=== PATIENT | female | born 1970 | race Caucasian/White ===

== ENCOUNTER 2016-04-05 14:30 | Emergency (ER) | payer MEDICARE, MEDICAID ==
[~2016-04-05 14:30] MED LIST: AMBI5TAB; AMBI5TAB OR; AMIT10TA2; AMIT25TA2; AMIT25TA2 OR; AMIT50TA2 OR; ATEN25TA; BACL10TA2 OR; DIOV80TA; DULO20CA OR; FLEXERIL; HYDROCODONE; INDERAL OR; LYRI75CA; LYRI75CA OR; PERC5TAB8 OR; PROP60TA OR; TIZA4TAB; TIZA4TAB OR; TOPI25TA2; TOPI25TA2 OR; TOPI50TA OR; VICO5TAB; VICODIN OR
[2016-04-05] MEDS ORDERED: KETOROLAC 30 MG/ML VIAL (J1885) As Ordered ONE (15:19)
[2016-04-05] MEDS ORDERED: ONDANSETRON 4MG/2ML VIAL (J2405) As Ordered ONE (15:19)
[2016-04-05] MEDS ORDERED: ACETAMINOPHEN 325 MG TAB As Ordered ONE (15:19)
[2016-04-05 15:32] LABS: BASO # 0.1 K/mm3 (0.0-0.2); BASO % 0.9 % (0.0-1.0); EOS # 0.2 K/mm3 (0.0-0.50); EOS % 1.4 % (0.0-3.0); LARGE UNSTAINED CELL # 0.1 K/mm3 (0.0-0.4); LARGE UNSTAINED CELL % 0.6 % (0.0-4.0); LYMPH # 1.8 K/mm3 (1.5-4.5); LYMPH % 16.3 % (24.0-44.0); MEAN CORPUSCULAR HEMOGLOBIN 27.9 pg (27.0-33.0); MEAN CORPUSCULAR HGB CONC 33.4 g/dl (32.0-36.5); MEAN CORPUSCULAR VOLUME 83.6 fl (80.0-96.0); MONO # 0.3 K/mm3 (0.0-0.8); MONO % 2.6 % (0.0-5.0); NEUTROPHILS # 8.4 K/mm3 (1.8-7.7); NEUTROPHILS % 78.2 % (36.0-66.0); PLATELET COUNT, AUTOMATED 316 k/mm3 (150-450); RED CELL DISTRIBUTION WIDTH 13.8 % (11.5-14.5); WHITE BLOOD COUNT 10.7 K/mm3 (4.0-10.0)
[2016-04-05 15:54] LABS: ALBUMIN 3.3 GM/DL (3.2-5.2); ALBUMIN/GLOBULIN RATIO 1.03 (1.00-1.93); ALKALINE PHOSPHATASE 151 U/L (45-117); ALT/SGPT 34 U/L (12-78); ANION GAP 10 MEQ/L (8-16); AST/SGOT 34 U/L (15-37); BILIRUBIN,DIRECT 0.1 MG/DL (0.0-0.2); BILIRUBIN,TOTAL 0.4 MG/DL (0.2-1.0); BLOOD UREA NITROGEN 9 MG/DL (7-18); CALCIUM LEVEL 8.6 MG/DL (8.5-10.1); CARBON DIOXIDE LEVEL 28 MEQ/L (21-32); CHLORIDE LEVEL 103 MEQ/L (98-107); CREATININE FOR GFR 0.81 MG/DL (0.55-1.02); GLOMERULAR FILTRATION RATE > 60.0 (>58); GLUCOSE, FASTING 99 MG/DL (70-105); POTASSIUM SERUM 4.1 MEQ/L (3.5-5.1); SODIUM LEVEL 141 MEQ/L (136-145); TOTAL PROTEIN 6.5 GM/DL (6.4-8.2)
--- NOTE | 2016-04-05 17:20 | REP ---
GALLBLADDER ULTRASOUND, 04/05/2016: INDICATION: Biliary colic. COMPARISON: CT abdomen and pelvis 02/02/2015. FINDINGS: The gallbladder measures 7 x 3.2 x 3.5 cm and contains a few small dependent stones with minimal posterior acoustic shadowing. The gallbladder wall 2.8 mm in thickness. There was a negative sonographic Alvarez sign. Common bile duct 3.1 mm transverse dimension, within normal limits. The hepatic parenchyma is homogeneous without focal lesion. The pancreatic head and pancreatic body are unremarkable. The tail is partially obscured by bowel gas. The right kidney measures 11.5 x 4.8 x 6.0 cm, is without hydronephrosis. There is prominent column of Edward in the midpole of right kidney. IMPRESSION: 1. Cholelithiasis with negative sonographic Alvarez sign. The gallbladder wall is 0.28 cm in thickness, upper normal range. 2. Pancreatic tail partially obscured by bowel gas. Remainder of pancreas unremarkable. 3. Liver is without focal lesions or fatty infiltration. 4. The right kidney without hydronephrosis. Prominent column of Edward. [facility]
[2016-04-05] MEDS ORDERED: NORCO, ANEXSIA 5/325MG TABLET (HYDROcodone/ACETAMINOPHEN) As Ordered ONE (18:02)
[2016-04-05] MEDS ORDERED: CIPROFLOXACIN 500 MG TAB As Ordered ONE (18:03)
[2016-04-05] MEDS ORDERED: metroNIDAZOLE (FLAGYL) 250 MG TAB As Ordered ONE (18:03)
--- NOTE | 2016-04-05 18:11 | EDDOCDS ---
Nurse's Notes [facility], [place] Name: Ginny Rocha Age: 45 yrs Sex: Female : 1970 Arrival Date: 04/05/2016 Time: 14:30 Bed I5 / M5 Private MD: James Plaza A. Diagnosis: Right upper quadrant abdominal tenderness;Other cholelithiasis without obstruction Presentation: 04/05 14:36 Presenting complaint: Patient states: Right lateral chest pain for few days. pain ck1 radiates down right arm, reports vomiting last night due to pain. Aspirin was not taken prior to arrival. Adult Sepsis Screening: The patient does not have new or worsening altered mentation. Patient's respiratory rate is less than 22. Systolic blood pressure is greater than 100. Patient has a qSOFA score of 0- Negative Sepsis Screen. Suicide/Homicide risk assessment- the patient denies having any suicidal and/or homicidal ideations and does not present with any other emotional, behavioral or mental health complaints. Status: Patient is not a social services aide or dependent. Transition of care: patient was not received from another setting of care. 14:36 Acuity: OMID Level 3 ck1 14:36 Method Of Arrival: Walkin/Carried/Asstd ck1 Triage Assessment: 14:39 General: Appears in no apparent distress, comfortable, Behavior is appropriate for age, ck1 cooperative. Pain: Location: right lateral anterior chest Pain currently is 6 out of 10 on a pain scale. HIV screening NA for this visit Offered previously. Neurological: Level of Consciousness is awake, alert, obeys commands, Oriented to person, place, time. Cardiovascular: Chest pain is described as Pain is 6 out of 10 on a pain scale. radiates to right neck episodes are continuous began 2 days ago. Respiratory: Respiratory effort is unlabored, Respiratory pattern is regular, symmetrical, Reports shortness of breath. Derm: Skin is intact, is healthy with good turgor, Skin is pink, warm & dry. 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 alprazolam 1 mg Oral tab 1 tab nightly 2. amitriptyline 50 mg Oral tab 1 tab nightly 3. amlodipine 5 mg Oral tab 1 tab once daily 4. hydrocodone-acetaminophen 5-325 mg Oral tab 1 tab as needed 5. irbesartan-hydrochlorothiazide 300-12.5 mg oral tab 1 tab once daily 6. labetalol 100 mg Oral tab 1 tab 2 times per day 7. tizanidine 4 mg oral tab 1 tab three times a day 8. topiramate 200 mg oral CSpX 1 cap once daily 9. zolpidem 10 mg Oral tab 1 tab nightly - PMHx: Anxiety; Depression; essential tremors; Hypertension; Migraine Headaches; Pseudoseizures; PTSD; - PSHx: Pins right ankle; Hysterectomy; - Social history: Smoking status: Patient states was never smoker of tobacco. No barriers to communication noted, The patient speaks fluent Divehi, Speaks appropriately for age. - Family history: Not pertinent. - : The pt / caregiver states he / she is not on anticoagulants. Home medication list is obtained from [employer] import data. - Exposure Risk Screening:: None identified. Screenin:08 Screening information is obtained from the patient. Fall risk: No risks identified. srm Assistance ADL's: requires no assistance with activities of daily living. Abuse/DV Screen: The patient / caregiver reports he/she is: not in a situation that causes fear, pain or injury. Nutritional screening: No deficits noted. Advance Directives: There is no active DNR order. home support is adequate. Assessment: 15:24 General: Appears in no apparent distress, Behavior is appropriate for age, cooperative. srm Neurological: No deficits noted. Cardiovascular: Rhythm is regular. Respiratory: Airway is patent Respiratory effort is even, unlabored, Breath sounds are clear bilaterally. GI: Abdomen is non- distended Bowel sounds present X 4 quads. Abd is soft and non tender X 4 quads. Derm: Skin temperature is warm. 16:12 Reassessment: Patient appears in no apparent distress at this time. Patient states srm feeling better. Patient states symptoms have improved. 17:25 General: Appears states pain to right anterior chest has again increased. Reports jmk increased pain with inspiration. without resp distress. provider aware.. 18:08 General: Appears in no apparent distress, Behavior is appropriate for age, cooperative. srm Neurological: No deficits noted. Respiratory: No deficits noted. GI: Reports upper abdominal pain. Vital Signs: 14:33 BP 144 / 96; Pulse 113; Resp 18 S; Temp 99.9(O); Pulse Ox 100% on R/A; Weight 95.25 kg gr2 (R); Height 5 ft. 5 in. (165.10 cm) (R); Pain 6/10; 16:11 BP 131 / 63; Pulse 91; Resp 18; Temp 98.8(O); Pulse Ox 95% on R/A; Pain 4/10; srm 18:09 BP 123 / 57 RA Sitting (auto/reg); Pulse 98; Resp 16; Temp 98.9(TE); Pulse Ox 96% on jrd R/A; Pain 3/10; 14:33 Body Mass Index 34.95 (95.25 kg, 165.10 cm) gr2 Vitals: 14:33 Log In Time: April 05, 2016 at 14:33. gr2 14:35 RN notified that patient meets Red Flag criteria. gr2 ED Course: 14:33 Patient visited by Dinah Burris. gr2 14:33 James Plaza is Private Physician. gr2 14:33 Patient moved to Waiting gr2 14:35 Patient visited by Dinah Burris. gr2 14:35 Patient moved to Pre RCE gr2 14:37 Triage Initiated ck1 14:42 Patient moved to Triage 1 ck1 14:48 Patient visited by No Mars PCA. rs6 15:08 Cayden Tarango PA-C is PHCP. cc10 15:08 Malick Hernandez MD is Attending Physician. cc10 15:08 Patient visited by Cayden Tarango PA-C. cc10 15:08 Patient visited by Cayden Tarango PA-C. cc10 15:11 Patient moved to I5 / M5 rs6 15:25 The patient / caregiver is instructed regarding the plan of care and ED course. srm Accompanied by Significant Other, Patient has correct armband on for positive identification. Placed in gown. Bed in low position. Call light in reach. Side rails up X 1. Cardiac monitoring not applicable on this patient. 15:25 Inserted saline lock: 20 gauge in left antecubital area and blood collected. srm 16:02 PHCP role handed off by Cayden Tarango PA-C mo1 16:02 Giovanni Bran PA is PHCP. mo1 16:12 Patient name changed from Ginny\S\Farhana\S\Aj\S\ to Ginny\S\J\S\Aj. EDMS 16:12 Patient visited by Kymberly Mclain RN. srm 16:13 [facility] Payment Agreement was scanned into [employer] and attached to record. zo 16:59 Urinalysis Sent. jmk 17:26 Patient visited by Pancho Hawkins RN. jmk 17:46 US Gallbladder Returned. EDMS 17:56 Bruno Edward MD is Referral Physician. mo1 18:08 Discontinued lock intact, bleeding controlled, pressure dressing applied, No srm redness/swelling at site. No procedures done that require assistance. 18:10 Patient visited by Mayito Soria PCA. d Administered Medications: 15:25 Drug: NS 0.9% 1000 ml Route: IV; Rate: bolus; Site: left antecubital; [facility] 15:25 Drug: Acetaminophen 650 mg [acetaminophen 325 mg tablet (2 tabs)] Route: PO; [facility] 16:11 Follow up: Response: Temperature is decreased srm 15:26 Drug: Ondansetron 4 mg Route: IVP; Site: left antecubital; k 15:26 Drug: ketorolac 30 mg [ketorolac 30 mg/mL (1 mL) injection solution (1 mL)] Route: IVP; [facility] Site: left antecubital; 16:11 Follow up: BP 131 / 63; Pulse 91 bpm; Resp 18 bpm; Temp 98.8 Oral; Pulse Ox 95% RA; srm Pain 4/10 Adult 18:06 Drug: HYDROcodone-acetaminophen 1 tabs [hydrocodone 5 mg-acetaminophen 325 mg tablet (1 jmk tabs)] Route: PO; 18:07 Drug: metroNIDAZOLE 500 mg Route: PO; [facility] 18:07 Drug: Ciprofloxacin 500 mg [ciprofloxacin 500 mg tablet (1 tabs)] Route: PO; [facility] Intake: 18:08 IV: 1000.00ml (NS); Total: 1000.00ml. srm Order Results: Lab Order: Basic Metabolic Profile; SPEC'M 04/05/16 15:21 Test: GLUCOSE, FASTING; Value: 99; Range: 70-105; Units: MG/DL; Status: F Test: BLOOD UREA NITROGEN; Value: 9; Range: 7-18; Units: MG/DL; Status: F Test: CREATININE FOR GFR; Value: 0.81; Range: 0.55-1.02; Units: MG/DL; Status: F Test: GLOMERULAR FILTRATION RATE; Value: > 60.0; Range: >58; Status: F Test: SODIUM LEVEL; Value: 141; Range: 136-145; Units: MEQ/L; Status: F Test: POTASSIUM SERUM; Value: 4.1; Range: 3.5-5.1; Units: MEQ/L; Status: F Test: CHLORIDE LEVEL; Value: 103; Range: 98-107; Units: MEQ/L; Status: F Test: CARBON DIOXIDE LEVEL; Value: 28; Range: 21-32; Units: MEQ/L; Status: F Test: ANION GAP; Value: 10; Range: 8-16; Units: MEQ/L; Status: F Test: CALCIUM LEVEL; Value: 8.6; Range: 8.5-10.1; Units: MG/DL; Status: F Test Note: ; Units are mL/min/1.73 m2 Chronic Kidney Disease Staging per NKF: Stage I & II GFR >=60 Normal to Mildly Decreased Stage III GFR 30-59 Moderately Decreased Stage IV GFR 15-29 Severely Decreased Stage V GFR <15 Very Little GFR Left ESRD GFR <15 on BECK TENDER Lab Order: CBC with Diff; SPEC'M 04/05/16 15:21 Test: WHITE BLOOD COUNT; Value: 10.7; Range: 4.0-10.0; Abnormal: Above high normal; Units: K/mm3; Status: F Test: RED BLOOD COUNT; Value: 4.12; Range: 4.00-5.40; Units: M/mm3; Status: F Test: HEMOGLOBIN; Value: 11.5; Range: 12.0-16.0; Abnormal: Below low normal; Units: g/dl; Status: F Test: HEMATOCRIT; Value: 34.4; Range: 36.0-47.0; Abnormal: Below low normal; Units: %; Status: F Test: MEAN CORPUSCULAR VOLUME; Value: 83.6; Range: 80.0-96.0; Units: fl; Status: F Test: MEAN CORPUSCULAR HEMOGLOBIN; Value: 27.9; Range: 27.0-33.0; Units: pg; Status: F Test: MEAN CORPUSCULAR HGB CONC; Value: 33.4; Range: 32.0-36.5; Units: g/dl; Status: F Test: RED CELL DISTRIBUTION WIDTH; Value: 13.8; Range: 11.5-14.5; Units: %; Status: F Test: PLATELET COUNT, AUTOMATED; Value: 316; Range: 150-450; Units: k/mm3; Status: F Test: NEUTROPHILS %; Value: 78.2; Range: 36.0-66.0; Abnormal: Above high normal; Units: %; Status: F Test: LYMPH %; Value: 16.3; Range: 24.0-44.0; Abnormal: Below low normal; Units: %; Status: F Test: MONO %; Value: 2.6; Range: 0.0-5.0; Units: %; Status: F Test: EOS %; Value: 1.4; Range: 0.0-3.0; Units: %; Status: F Test: BASO %; Value: 0.9; Range: 0.0-1.0; Units: %; Status: F Test: LARGE UNSTAINED CELL %; Value: 0.6; Range: 0.0-4.0; Units: %; Status: F Test: NEUTROPHILS #; Value: 8.4; Range: 1.8-7.7; Abnormal: Above high normal; Units: K/mm3; Status: F Test: LYMPH #; Value: 1.8; Range: 1.5-4.5; Units: K/mm3; Status: F Test: MONO #; Value: 0.3; Range: 0.0-0.8; Units: K/mm3; Status: F Test: EOS #; Value: 0.2; Range: 0.0-0.50; Units: K/mm3; Status: F Test: BASO #; Value: 0.1; Range: 0.0-0.2; Units: K/mm3; Status: F Test: LARGE UNSTAINED CELL #; Value: 0.1; Range: 0.0-0.4; Units: K/mm3; Status: F Lab Order: Cardiac Injury Profile; SPEC'M 04/05/16 15:21 Test: CPK CREATINE PHOSPHOKINASE; Value: 137; Range: 26-192; Units: U/L; Status: F Test: CK-MB VALUE MASS; Value: 1.0; Range: 0.0-3.6; Units: NG/ML; Status: F Test: MB/CK RELATIVE INDEX; Value: 0.72; Range: < OR =4; Status: F Test Note: ; DIAGNOSIS CRITERIA MMB ng/ml Relative Index (RI) NON-AMI < or = 5 N/A BORJA ZONE > 5 < or = 4 AMI > 5 > 4 Lab Order: Lipase; [facility] 04/05/16 Test: LIPASE; Value: 70; Range: 73-393; Abnormal: Below low normal; Units: U/L; Status: F Lab Order: Liver Profile; [facility] 04/05/16 Test: AST/SGOT; Value: 34; Range: 15-37; Units: U/L; Status: F Test: ALT/SGPT; Value: 34; Range: 12-78; Units: U/L; Status: F Test: ALKALINE PHOSPHATASE; Value: 151; Range: 45-117; Abnormal: Above high normal; Units: U/L; Status: F Test: BILIRUBIN,TOTAL; Value: 0.4; Range: 0.2-1.0; Units: MG/DL; Status: F Test: BILIRUBIN,DIRECT; Value: 0.1; Range: 0.0-0.2; Units: MG/DL; Status: F Test: TOTAL PROTEIN; Value: 6.5; Range: 6.4-8.2; Units: GM/DL; Status: F Test: ALBUMIN; Value: 3.3; Range: 3.2-5.2; Units: GM/DL; Status: F Test: ALBUMIN/GLOBULIN RATIO; Value: 1.03; Range: 1.00-1.93; Status: F Lab Order: Troponin; [facility] 04/05/16 Test: TROPONIN I; Value: < 0.02; Range: < 0.10; Units: NG/ML; Status: F Test Note: ; Troponin I Reference Interval for Cint LOCI: 99th Percentile= 0.00-0.045 ng/ml Risk Stratification: <= 0.10 ng/ml Decreased Risk for Adverse Clinical Events. 0.10-1.50 ng/ml Increased Risk for Adverse Clinical Events. Evaluation of additional criterion and/or repeat testing in 2-6 hours is suggested to rule out myocardial damage. >= 1.50 ng/ml Indicative of Myocardial Injury. Lab Order: Urinalysis; SPEC'M 04/05/16 15:21 Test: APPEARANCE, URINE; Value: CLEAR; Range: CLEAR; Status: F Test: COLOR, URINE; Value: YELLOW; Range: YELLOW; Status: F Test: PH,URINE; Value: 6.0; Range: 5.0-9.0; Units: UNITS; Status: F Test: SPECIFIC GRAVITY URINE AUTO; Value: 1.005; Range: 1.002-1.035; Status: F Test: PROTEIN, URINE AUTO; Value: NEGATIVE; Range: NEGATIVE; Units: mg/dL; Status: F Test: GLUCOSE, URINE (UA) AUTO; Value: NEGATIVE; Range: NEGATIVE; Units: mg/dL; Status: F Test: KETONE, URINE AUTO; Value: NEGATIVE; Range: NEGATIVE; Units: mg/dL; Status: F Test: UROBILINOGEN, URINE AUTO; Value: 0.2; Range: 0.0-2.0; Units: mg/dL; Status: F Test: BILIRUBIN, URINE AUTO; Value: NEGATIVE; Range: NEGATIVE; Status: F Test: NITRITE, URINE AUTO; Value: NEGATIVE; Range: NEGATIVE; Status: F Test: LEUKOCYTE ESTERASE, URINE AUTO; Value: NEGATIVE; Range: NEGATIVE; Status: F Test: BLOOD, URINE BLOOD; Value: 1+; Range: NEGATIVE; Abnormal: Above high normal; Status: F Test: WBC, URINE AUTO; Value: 2; Range: 0-3; Units: /HPF; Status: F Test: RBC, URINE AUTO; Value: 2; Range: 0-3; Units: /HPF; Status: F Test: BACTERIA, URINE AUTO; Value: NEGATIVE; Range: NEGATIVE; Status: F Test: SQUAMOUS EPITHELIAL CELL UR AU; Value: 4; Range: 0-6; Units: /HPF; Status: F Test: HYALINE CAST, URINE AUTO; Value: 0; Range: 0-1; Units: /LPF; Status: F Radiology Order: US Gallbladder Test: US Gallbladder REASON FOR EXAMINATION: Biliary Colic; GALLBLADDER ULTRASOUND, 04/05/2016:; ; INDICATION: Biliary colic.; ; COMPARISON: CT abdomen and pelvis 02/02/2015.; ; FINDINGS: The gallbladder measures 7 x 3.2 x 3.5 cm and contains a few small; dependent stones with posterior acoustic shadowing. The gallbladder wall 2.8 mm; in thickness. There was a negative sonographic Alvarez sign. Common bile duct 3.1; mm transverse dimension, within normal limits.; ; The hepatic parenchyma is homogeneous without focal lesion. The pancreatic head; and pancreatic body are unremarkable. The tail is partially obscured by bowel; gas.; ; The right kidney measures 11.5 x 4.8 x 6.0 cm, is without hydronephrosis. There; is prominent column of Edward in the midpole of right kidney.; ; IMPRESSION:; 1. Cholelithiasis without positive sonographic Alvarez sign. The gallbladder wall; is 0.28 cm in thickness, upper normal range.; 2. Pancreatic tail partially obscured by bowel gas. Remainder of pancreas; unremarkable.; 3. Liver is without focal lesions or fatty infiltration.; 4. The right kidney without hydronephrosis. Prominent column of Edward.; ; ; ; ; ; ; Unreviewed; Outcome: 17:56 Discharge ordered by Provider. mo1 18:08 Discharge Assessment: Patient awake, alert and oriented x 3. No cognitive and/or srm functional deficits noted. Patient verbalized understanding of disposition instructions. patient administered narcotics - no. The following High Risk Discharge criteria are identified: None. Discharged to home ambulatory, with significant other. Condition: good Condition: stable. Discharge instructions given to patient, Instructed on discharge instructions, follow up and referral plans. medication usage, Demonstrated understanding of instructions, medications, Pt was receptive of discharge instructions/ teaching. Prescriptions given X 4. Ultrasound Study completed. Property sent home with patient. 18:10 Patient left the ED. violetta Signatures: Dispatcher [employer] EDMS Pancho Hawkins RN RN jmk Michelson, Staci RN Michelle Naidu RN RN ck1 Shahbaz Martinez Gainslee gr2 Giovanni Bran PA PA mo1 Cayden Tarango, PA-C PA-C cc10 Mayito Soria, TYPEWRITER REPAIRER TYPEWRITER REPAIRER jrd No Mars, TYPEWRITER REPAIRER TYPEWRITER REPAIRER rs6 MTDD
--- NOTE | 2016-04-05 18:11 | EDDOCDS ---
Physician Documentation [facility] Name: Ginny Rocha Age: 45 yrs Sex: Female : 1970 Arrival Date: 04/05/2016 Time: 14:30 Bed I5 / M5 Private MD: James Plaza A. Disposition: 04/05/16 17:56 Discharged to Home/Self Care. Impression: Right upper quadrant abdominal tenderness, Other cholelithiasis without obstruction. - Condition is Stable. - Discharge Instructions: Biliary Colic, Cholelithiasis. - Prescriptions for Cipro 500 mg Oral Tablet - take 1 tablet by ORAL route every 12 hours; 14 tablet. Flagyl 500 mg Oral Tablet - take 1 tablet by ORAL route every 12 hours for 7 days; 14 tablet. Evarts 5- 325 mg Oral Tablet - take 1 tablet by ORAL route every 6 hours As needed MDD: 4 tabs; 20 tablet. ZOFRAN ODT 4 mg - dissolve 1 tablet by ORAL route 4 times per day As needed do not chew, do not swallow whole; 10 tablet. - Medication Reconciliation, Local Pharmacy Hours form. - Follow up: Bruno Edward MD; When: Call to arrange an appointment; Reason: Recheck today's complaints, Continuance of care. - Problem is new. - Symptoms are unchanged. Historical: - Allergies: IV Dye (Hives); - Home Meds: 1. alprazolam 1 mg Oral tab 1 tab nightly 2. amitriptyline 50 mg Oral tab 1 tab nightly 3. amlodipine 5 mg Oral tab 1 tab once daily 4. hydrocodone-acetaminophen 5-325 mg Oral tab 1 tab as needed 5. irbesartan-hydrochlorothiazide 300-12.5 mg oral tab 1 tab once daily 6. labetalol 100 mg Oral tab 1 tab 2 times per day 7. tizanidine 4 mg oral tab 1 tab three times a day 8. topiramate 200 mg oral CSpX 1 cap once daily 9. zolpidem 10 mg Oral tab 1 tab nightly - PMHx: Anxiety; Depression; essential tremors; Hypertension; Migraine Headaches; Pseudoseizures; PTSD; - PSHx: Pins right ankle; Hysterectomy; - Social history: Smoking status: Patient states was never smoker of tobacco. No barriers to communication noted, The patient speaks fluent Iranian, Speaks appropriately for age. - Family history: Not pertinent. - : The pt / caregiver states he / she is not on anticoagulants. Home medication list is obtained from [employer] import data. - Exposure Risk Screening:: None identified. 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 5 in. (165.10 cm) (R); Pain 6/10; 16:11 BP 131 / 63; Pulse 91; Resp 18; Temp 98.8(O); Pulse Ox 95% on R/A; Pain 4/10; srm 18:09 BP 123 / 57 RA Sitting (auto/reg); Pulse 98; Resp 16; Temp 98.9(TE); Pulse Ox 96% on jrd R/A; Pain 3/10; 14:33 Body Mass Index 34.95 (95.25 kg, 165.10 cm) gr2 MDM: 14:44 ECG WITH READING ER PHYS+CARDIAG ordered. EDMS 15:14 NS 0.9% 1000 ml IV at bolus once ordered. cc10 15:14 Ondansetron 4 mg IVP once ordered. cc10 15:14 ketorolac 30 mg IVP once ordered. cc10 15:14 IV Saline Lock ordered. cc10 15:14 Undress patient appropriately for examination ordered. cc10 15:14 Acetaminophen Tablet 650 mg PO once ordered. cc10 15:15 Basic Metabolic Profile Ordered. EDMS 15:15 CBC with Diff Ordered. EDMS 15:15 Cardiac Injury Profile Ordered. EDMS 15:15 Lipase Ordered. EDMS 15:15 Liver Profile Ordered. EDMS 15:15 Troponin Ordered. EDMS 15:15 Urinalysis Ordered. EDMS 15:16 NOTHING BY MOUTH+DIET ordered. EDMS 16:05 US Gallbladder Ordered. EDMS 16:05 Basic Metabolic Profile Reviewed. mo1 16:05 Liver Profile Reviewed. mo1 16:06 Lipase Reviewed. mo1 16:06 CBC with Diff Reviewed. mo1 16:06 Cardiac Injury Profile Reviewed. mo1 16:06 Troponin Reviewed. mo1 16:12 Financial registration complete. zo 16:13 [facility] Payment Agreement was scanned into [employer] and attached to record. zo 17:53 Urinalysis Reviewed. mo1 17:56 metroNIDAZOLE 500 mg PO once ordered. mo1 17:56 Ciprofloxacin 500 mg PO once ordered. mo1 17:56 HYDROcodone-acetaminophen 5 mg-325 mg 1 tabs PO once ordered. mo1 Administered Medications: 15:25 Drug: NS 0.9% 1000 ml Route: IV; Rate: bolus; Site: left antecubital; [facility] 15:25 Drug: Acetaminophen 650 mg [acetaminophen 325 mg tablet (2 tabs)] Route: PO; k 16:11 Follow up: Response: Temperature is decreased [facility] 15:26 Drug: Ondansetron 4 mg Route: IVP; Site: left antecubital; [facility] 15:26 Drug: ketorolac 30 mg [ketorolac 30 mg/mL (1 mL) injection solution (1 mL)] Route: IVP; [facility] Site: left antecubital; 16:11 Follow up: BP 131 / 63; Pulse 91 bpm; Resp 18 bpm; Temp 98.8 Oral; Pulse Ox 95% RA; srm Pain 4/10 Adult 18:06 Drug: HYDROcodone-acetaminophen 1 tabs [hydrocodone 5 mg-acetaminophen 325 mg tablet (1 jmk tabs)] Route: PO; 18:07 Drug: metroNIDAZOLE 500 mg Route: PO; k 18:07 Drug: Ciprofloxacin 500 mg [ciprofloxacin 500 mg tablet (1 tabs)] Route: PO; [facility] Signatures: Dispatcher [employer] Kymberly Chang RN RN [facility] DonyaMichelle Lopez RN RN ck1 Shahbaz Martinez Michael, PA PA mo1 Cayden Tarango PA-Gurdeep PA-C cc10 Mayito Soria, DRAKE TRAVELING NURSE d Pancho Hawkins RN The chart was reviewed and I authenticate all verbal orders and agree with the evaluation and treatment provided.Attachments: 16:13 [facility] Payment Agreement zo MTDD
--- NOTE | 2016-04-06 08:30 | ECGEPIP ---
Stationary ECG Study [facility] - ED Test Date: 2016-04-05 Pat Name: ROBYN ARITA Department: Room: - Gender: F Director Paid Media: nuvia : 1970 Requested By: Malick Stoner Order Number: [id number] Reading MD: Malick Hernandez Measurements Intervals [place] Rate: 106 P: 55 WV: 152 QRS: 35 QRSD: 88 T: 39 QT: 337 QTc: 449 Interpretive Statements SINUS TACHYCARDIA POSSIBLE LEFT ATRIAL ENLARGEMENT Electronically Signed On 04-06-2016 8:29:54 EST by Malick Hernandez
--- NOTE | 2016-04-07 19:11 | EDDOCDS ---
Physician Documentation [facility] Name: Ginny Rocha Age: 45 yrs Sex: Female : 1970 Arrival Date: 04/05/2016 Time: 14:30 Bed I5 / M5 Private MD: James Plaza A. Disposition: 04/05/16 17:56 Discharged to Home/Self Care. Impression: Right upper quadrant abdominal tenderness, Other cholelithiasis without obstruction. - Condition is Stable. - Discharge Instructions: Biliary Colic, Cholelithiasis. - Prescriptions for Cipro 500 mg Oral Tablet - take 1 tablet by ORAL route every 12 hours; 14 tablet. Flagyl 500 mg Oral Tablet - take 1 tablet by ORAL route every 12 hours for 7 days; 14 tablet. [place] 5- 325 mg Oral Tablet - take 1 tablet by ORAL route every 6 hours As needed MDD: 4 tabs; 20 tablet. ZOFRAN ODT 4 mg - dissolve 1 tablet by ORAL route 4 times per day As needed do not chew, do not swallow whole; 10 tablet. - Medication Reconciliation, Local Pharmacy Hours form. - Follow up: Bruno Edward MD; When: Call to arrange an appointment; Reason: Recheck today's complaints, Continuance of care. - Problem is new. - Symptoms are unchanged. Historical: - Allergies: IV Dye (Hives); - Home Meds: 1. alprazolam 1 mg Oral tab 1 tab nightly 2. amitriptyline 50 mg Oral tab 1 tab nightly 3. amlodipine 5 mg Oral tab 1 tab once daily 4. hydrocodone-acetaminophen 5-325 mg Oral tab 1 tab as needed 5. irbesartan-hydrochlorothiazide 300-12.5 mg oral tab 1 tab once daily 6. labetalol 100 mg Oral tab 1 tab 2 times per day 7. tizanidine 4 mg oral tab 1 tab three times a day 8. topiramate 200 mg oral CSpX 1 cap once daily 9. zolpidem 10 mg Oral tab 1 tab nightly - PMHx: Anxiety; Depression; essential tremors; Hypertension; Migraine Headaches; Pseudoseizures; PTSD; - PSHx: Pins right ankle; Hysterectomy; - Social history: Smoking status: Patient states was never smoker of tobacco. No barriers to communication noted, The patient speaks fluent Greenlandic, Speaks appropriately for age. - Family history: Not pertinent. - : The pt / caregiver states he / she is not on anticoagulants. Home medication list is obtained from [employer] import data. - Exposure Risk Screening:: None identified. 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 5 in. (165.10 cm) (R); Pain 6/10; 16:11 BP 131 / 63; Pulse 91; Resp 18; Temp 98.8(O); Pulse Ox 95% on R/A; Pain 4/10; srm 18:09 BP 123 / 57 RA Sitting (auto/reg); Pulse 98; Resp 16; Temp 98.9(TE); Pulse Ox 96% on jrd R/A; Pain 3/10; 14:33 Body Mass Index 34.95 (95.25 kg, 165.10 cm) gr2 MDM: 14:44 ECG WITH READING ER PHYS+CARDIAG ordered. EDMS 15:14 NS 0.9% 1000 ml IV at bolus once ordered. cc10 15:14 Ondansetron 4 mg IVP once ordered. cc10 15:14 ketorolac 30 mg IVP once ordered. cc10 15:14 IV Saline Lock ordered. cc10 15:14 Undress patient appropriately for examination ordered. cc10 15:14 Acetaminophen Tablet 650 mg PO once ordered. cc10 15:15 Basic Metabolic Profile Ordered. EDMS 15:15 CBC with Diff Ordered. EDMS 15:15 Cardiac Injury Profile Ordered. EDMS 15:15 Lipase Ordered. EDMS 15:15 Liver Profile Ordered. EDMS 15:15 Troponin Ordered. EDMS 15:15 Urinalysis Ordered. EDMS 15:16 NOTHING BY MOUTH+DIET ordered. EDMS 16:05 US Gallbladder Ordered. EDMS 16:05 Basic Metabolic Profile Reviewed. mo1 16:05 Liver Profile Reviewed. mo1 16:06 Lipase Reviewed. mo1 16:06 CBC with Diff Reviewed. mo1 16:06 Cardiac Injury Profile Reviewed. mo1 16:06 Troponin Reviewed. mo1 16:12 Financial registration complete. zo 16:13 [facility] Payment Agreement was scanned into [employer] ([email or web address]) and attached to record. zo 17:53 Urinalysis Reviewed. mo1 17:56 metroNIDAZOLE 500 mg PO once ordered. mo1 17:56 Ciprofloxacin 500 mg PO once ordered. mo1 17:56 HYDROcodone-acetaminophen 5 mg-325 mg 1 tabs PO once ordered. mo1 04/06 10:41 T-Sheet-- Draft Copy was scanned into [employer] ([email or web address]) and attached to record. gb 10:42 ECG/EKG was scanned into [employer] ([email or web address]) and attached to record. gb Administered Medications: 04/05 15:25 Drug: NS 0.9% 1000 ml Route: IV; Rate: bolus; Site: left antecubital; k 15:25 Drug: Acetaminophen 650 mg [acetaminophen 325 mg tablet (2 tabs)] Route: PO; k 16:11 Follow up: Response: Temperature is decreased [facility] 15:26 Drug: Ondansetron 4 mg Route: IVP; Site: left antecubital; [facility] 15:26 Drug: ketorolac 30 mg [ketorolac 30 mg/mL (1 mL) injection solution (1 mL)] Route: IVP; [facility] Site: left antecubital; 16:11 Follow up: BP 131 / 63; Pulse 91 bpm; Resp 18 bpm; Temp 98.8 Oral; Pulse Ox 95% RA; srm Pain 4/10 Adult 18:06 Drug: HYDROcodone-acetaminophen 1 tabs [hydrocodone 5 mg-acetaminophen 325 mg tablet (1 jmk tabs)] Route: PO; 18:07 Drug: metroNIDAZOLE 500 mg Route: PO; k 18:07 Drug: Ciprofloxacin 500 mg [ciprofloxacin 500 mg tablet (1 tabs)] Route: PO; [facility] Signatures: Dispatcher [employer] EDMS Kymberly Mclain RN RN srm Barnhardt, Cherri, Reg Reg gb Michelle Bob,RN RN ck1 Shahbaz Martinez Michael, PA PA mo1 Cayden Tarango, PA-C PA-C cc10 Mayito Soria, DRAKE FROG CATCHER d Pancho Hawkins RN The chart was reviewed and I authenticate all verbal orders and agree with the evaluation and treatment provided.Attachments: 16:13 [facility] Payment Agreement zo 04/06 10:41 T-Sheet-- Draft Copy gb 10:42 ECG/EKG gb Chart Complete MTDD
--- NOTE | 2016-04-07 19:11 | EDDOCDS ---
Physician Documentation [facility] Name: Ginny Rocha Age: 45 yrs Sex: Female : 1970 Arrival Date: 04/05/2016 Time: 14:30 Bed I5 / M5 Private MD: James Plaza A. Disposition: 04/05/16 17:56 Discharged to Home/Self Care. Impression: Right upper quadrant abdominal tenderness, Other cholelithiasis without obstruction. - Condition is Stable. - Discharge Instructions: Biliary Colic, Cholelithiasis. - Prescriptions for Cipro 500 mg Oral Tablet - take 1 tablet by ORAL route every 12 hours; 14 tablet. Flagyl 500 mg Oral Tablet - take 1 tablet by ORAL route every 12 hours for 7 days; 14 tablet. [place] 5- 325 mg Oral Tablet - take 1 tablet by ORAL route every 6 hours As needed MDD: 4 tabs; 20 tablet. ZOFRAN ODT 4 mg - dissolve 1 tablet by ORAL route 4 times per day As needed do not chew, do not swallow whole; 10 tablet. - Medication Reconciliation, Local Pharmacy Hours form. - Follow up: Bruno Edward MD; When: Call to arrange an appointment; Reason: Recheck today's complaints, Continuance of care. - Problem is new. - Symptoms are unchanged. Historical: - Allergies: IV Dye (Hives); - Home Meds: 1. alprazolam 1 mg Oral tab 1 tab nightly 2. amitriptyline 50 mg Oral tab 1 tab nightly 3. amlodipine 5 mg Oral tab 1 tab once daily 4. hydrocodone-acetaminophen 5-325 mg Oral tab 1 tab as needed 5. irbesartan-hydrochlorothiazide 300-12.5 mg oral tab 1 tab once daily 6. labetalol 100 mg Oral tab 1 tab 2 times per day 7. tizanidine 4 mg oral tab 1 tab three times a day 8. topiramate 200 mg oral CSpX 1 cap once daily 9. zolpidem 10 mg Oral tab 1 tab nightly - PMHx: Anxiety; Depression; essential tremors; Hypertension; Migraine Headaches; Pseudoseizures; PTSD; - PSHx: Pins right ankle; Hysterectomy; - Social history: Smoking status: Patient states was never smoker of tobacco. No barriers to communication noted, The patient speaks fluent [place], Speaks appropriately for age. - Family history: Not pertinent. - : The pt / caregiver states he / she is not on anticoagulants. Home medication list is obtained from [employer] import data. - Exposure Risk Screening:: None identified. 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 5 in. (165.10 cm) (R); Pain 6/10; 16:11 BP 131 / 63; Pulse 91; Resp 18; Temp 98.8(O); Pulse Ox 95% on R/A; Pain 4/10; srm 18:09 BP 123 / 57 RA Sitting (auto/reg); Pulse 98; Resp 16; Temp 98.9(TE); Pulse Ox 96% on jrd R/A; Pain 3/10; 14:33 Body Mass Index 34.95 (95.25 kg, 165.10 cm) gr2 MDM: 14:44 ECG WITH READING ER PHYS+CARDIAG ordered. EDMS 15:14 NS 0.9% 1000 ml IV at bolus once ordered. cc10 15:14 Ondansetron 4 mg IVP once ordered. cc10 15:14 ketorolac 30 mg IVP once ordered. cc10 15:14 IV Saline Lock ordered. cc10 15:14 Undress patient appropriately for examination ordered. cc10 15:14 Acetaminophen Tablet 650 mg PO once ordered. cc10 15:15 Basic Metabolic Profile Ordered. EDMS 15:15 CBC with Diff Ordered. EDMS 15:15 Cardiac Injury Profile Ordered. EDMS 15:15 Lipase Ordered. EDMS 15:15 Liver Profile Ordered. EDMS 15:15 Troponin Ordered. EDMS 15:15 Urinalysis Ordered. EDMS 15:16 NOTHING BY MOUTH+DIET ordered. EDMS 16:05 US Gallbladder Ordered. EDMS 16:05 Basic Metabolic Profile Reviewed. mo1 16:05 Liver Profile Reviewed. mo1 16:06 Lipase Reviewed. mo1 16:06 CBC with Diff Reviewed. mo1 16:06 Cardiac Injury Profile Reviewed. mo1 16:06 Troponin Reviewed. mo1 16:12 Financial registration complete. zo 16:13 [facility] Payment Agreement was scanned into [email or web address] and attached to record. zo 17:53 Urinalysis Reviewed. mo1 17:56 metroNIDAZOLE 500 mg PO once ordered. mo1 17:56 Ciprofloxacin 500 mg PO once ordered. mo1 17:56 HYDROcodone-acetaminophen 5 mg-325 mg 1 tabs PO once ordered. mo1 04/06 10:41 T-Sheet-- Draft Copy was scanned into [email or web address] and attached to record. gb 10:42 ECG/EKG was scanned into [email or web address] and attached to record. gb Administered Medications: 04/05 15:25 Drug: NS 0.9% 1000 ml Route: IV; Rate: bolus; Site: left antecubital; k 15:25 Drug: Acetaminophen 650 mg [acetaminophen 325 mg tablet (2 tabs)] Route: PO; k 16:11 Follow up: Response: Temperature is decreased [facility] 15:26 Drug: Ondansetron 4 mg Route: IVP; Site: left antecubital; [facility] 15:26 Drug: ketorolac 30 mg [ketorolac 30 mg/mL (1 mL) injection solution (1 mL)] Route: IVP; [facility] Site: left antecubital; 16:11 Follow up: BP 131 / 63; Pulse 91 bpm; Resp 18 bpm; Temp 98.8 Oral; Pulse Ox 95% RA; srm Pain 4/10 Adult 18:06 Drug: HYDROcodone-acetaminophen 1 tabs [hydrocodone 5 mg-acetaminophen 325 mg tablet (1 jmk tabs)] Route: PO; 18:07 Drug: metroNIDAZOLE 500 mg Route: PO; k 18:07 Drug: Ciprofloxacin 500 mg [ciprofloxacin 500 mg tablet (1 tabs)] Route: PO; [facility] Signatures: Dispatcher [employer] EDMS Kymberly Mclain RN RN srm Barnhardt, Cherri, Reg Reg gb Michelle Bob,RN RN ck1 Shahbaz Martinez Michael, PA PA mo1 Cayden Tarango, PA-C PA-C cc10 Mayito Soria, DRAKE STUCCO LABORER d Pancho Hawkins RN The chart was reviewed and I authenticate all verbal orders and agree with the evaluation and treatment provided.Attachments: 16:13 [facility] Payment Agreement zo 04/06 10:41 T-Sheet-- Draft Copy gb 10:42 ECG/EKG gb Chart Complete MTDD
--- NOTE | 2016-04-07 19:12 | EDDOCDS ---
Nurse's Notes [facility] Name: Robyn Rocha Age: 45 yrs Sex: Female : 1970 Arrival Date: 04/05/2016 Time: 14:30 Bed I5 / M5 Private MD: James Plaza A. Diagnosis: Right upper quadrant abdominal tenderness;Other cholelithiasis without obstruction Presentation: 04/05 14:36 Presenting complaint: Patient states: Right lateral chest pain for few days. pain ck1 radiates down right arm, reports vomiting last night due to pain. Aspirin was not taken prior to arrival. Adult Sepsis Screening: The patient does not have new or worsening altered mentation. Patient's respiratory rate is less than 22. Systolic blood pressure is greater than 100. Patient has a qSOFA score of 0- Negative Sepsis Screen. Suicide/Homicide risk assessment- the patient denies having any suicidal and/or homicidal ideations and does not present with any other emotional, behavioral or mental health complaints. Status: Patient is not a employee service officer or dependent. Transition of care: patient was not received from another setting of care. 14:36 Acuity: OMID Level 3 ck1 14:36 Method Of Arrival: Walkin/Carried/Asstd ck1 Triage Assessment: 14:39 General: Appears in no apparent distress, comfortable, Behavior is appropriate for age, ck1 cooperative. Pain: Location: right lateral anterior chest Pain currently is 6 out of 10 on a pain scale. HIV screening NA for this visit Offered previously. Neurological: Level of Consciousness is awake, alert, obeys commands, Oriented to person, place, time. Cardiovascular: Chest pain is described as Pain is 6 out of 10 on a pain scale. radiates to right neck episodes are continuous began 2 days ago. Respiratory: Respiratory effort is unlabored, Respiratory pattern is regular, symmetrical, Reports shortness of breath. Derm: Skin is intact, is healthy with good turgor, Skin is pink, warm & dry. CAR SANDER: 14:38 LMP N/A - Hysterectomy ck1 Historical: - Allergies: IV Dye (Hives); - Home Meds: 1. alprazolam 1 mg Oral tab 1 tab nightly 2. amitriptyline 50 mg Oral tab 1 tab nightly 3. amlodipine 5 mg Oral tab 1 tab once daily 4. hydrocodone-acetaminophen 5-325 mg Oral tab 1 tab as needed 5. irbesartan-hydrochlorothiazide 300-12.5 mg oral tab 1 tab once daily 6. labetalol 100 mg Oral tab 1 tab 2 times per day 7. tizanidine 4 mg oral tab 1 tab three times a day 8. topiramate 200 mg oral CSpX 1 cap once daily 9. zolpidem 10 mg Oral tab 1 tab nightly - PMHx: Anxiety; Depression; essential tremors; Hypertension; Migraine Headaches; Pseudoseizures; PTSD; - PSHx: Pins right ankle; Hysterectomy; - Social history: Smoking status: Patient states was never smoker of tobacco. No barriers to communication noted, The patient speaks fluent Divehi, Speaks appropriately for age. - Family history: Not pertinent. - : The pt / caregiver states he / she is not on anticoagulants. Home medication list is obtained from [employer] import data. - Exposure Risk Screening:: None identified. Screenin:08 Screening information is obtained from the patient. Fall risk: No risks identified. srm Assistance ADL's: requires no assistance with activities of daily living. Abuse/DV Screen: The patient / caregiver reports he/she is: not in a situation that causes fear, pain or injury. Nutritional screening: No deficits noted. Advance Directives: There is no active DNR order. home support is adequate. Assessment: 15:24 General: Appears in no apparent distress, Behavior is appropriate for age, cooperative. srm Neurological: No deficits noted. Cardiovascular: Rhythm is regular. Respiratory: Airway is patent Respiratory effort is even, unlabored, Breath sounds are clear bilaterally. GI: Abdomen is non- distended Bowel sounds present X 4 quads. Abd is soft and non tender X 4 quads. Derm: Skin temperature is warm. 16:12 Reassessment: Patient appears in no apparent distress at this time. Patient states srm feeling better. Patient states symptoms have improved. 17:25 General: Appears states pain to right anterior chest has again increased. Reports jmk increased pain with inspiration. without resp distress. provider aware.. 18:08 General: Appears in no apparent distress, Behavior is appropriate for age, cooperative. srm Neurological: No deficits noted. Respiratory: No deficits noted. GI: Reports upper abdominal pain. Vital Signs: 14:33 BP 144 / 96; Pulse 113; Resp 18 S; Temp 99.9(O); Pulse Ox 100% on R/A; Weight 95.25 kg gr2 (R); Height 5 ft. 5 in. (165.10 cm) (R); Pain 6/10; 16:11 BP 131 / 63; Pulse 91; Resp 18; Temp 98.8(O); Pulse Ox 95% on R/A; Pain 4/10; srm 18:09 BP 123 / 57 RA Sitting (auto/reg); Pulse 98; Resp 16; Temp 98.9(TE); Pulse Ox 96% on jrd R/A; Pain 3/10; 14:33 Body Mass Index 34.95 (95.25 kg, 165.10 cm) gr2 Vitals: 14:33 Log In Time: April 05, 2016 at 14:33. gr2 14:35 RN notified that patient meets Red Flag criteria. gr2 ED Course: 14:33 Patient visited by Dinah Burris. gr2 14:33 James Plaza is Private Physician. gr2 14:33 Patient moved to Waiting gr2 14:35 Patient visited by Dinah Burris. gr2 14:35 Patient moved to Pre RCE gr2 14:37 Triage Initiated ck1 14:42 Patient moved to Triage 1 ck1 14:48 Patient visited by No Mars PCA. rs6 15:08 Cayden Tarango PA-C is PHCP. cc10 15:08 Malick Hernandez MD is Attending Physician. cc10 15:08 Patient visited by Cayden Tarango PA-C. cc10 15:08 Patient visited by Cayden Tarango PA-C. cc10 15:11 Patient moved to I5 / M5 rs6 15:25 The patient / caregiver is instructed regarding the plan of care and ED course. srm Accompanied by Significant Other, Patient has correct armband on for positive identification. Placed in gown. Bed in low position. Call light in reach. Side rails up X 1. Cardiac monitoring not applicable on this patient. 15:25 Inserted saline lock: 20 gauge in left antecubital area and blood collected. srm 16:02 PHCP role handed off by Cayden Tarango PA-C mo1 16:02 Giovanni Bran PA is PHCP. mo1 16:12 Patient name changed from Robyn\S\Farhana\S\Aj\S\ to Robyn\S\J\S\Aj. EDMS 16:12 Patient visited by Kymberly Mclain RN. srm 16:13 COUNTS INCLUDE 234 BEDS AT THE [facility] Payment Agreement was scanned into Scope 5 and attached to record. zo 16:59 Urinalysis Sent. jmk 17:26 Patient visited by Pancho Hawkins RN. jmk 17:46 US Gallbladder Returned. EDMS 17:56 Bruno Edward MD is Referral Physician. mo1 18:08 Discontinued lock intact, bleeding controlled, pressure dressing applied, No srm redness/swelling at site. No procedures done that require assistance. 18:10 Patient visited by Mayito Soria PCA. jrd 04/06 09:01 EKG-ADULT Returned. EDMS 10:41 T-Sheet-- Draft Copy was scanned into Scope 5 and attached to record. gb 10:42 ECG/EKG was scanned into Scope 5 and attached to record. gb Administered Medications: 04/05 15:25 Drug: NS 0.9% 1000 ml Route: IV; Rate: bolus; Site: left antecubital; [facility] 15:25 Drug: Acetaminophen 650 mg [acetaminophen 325 mg tablet (2 tabs)] Route: PO; [facility] 16:11 Follow up: Response: Temperature is decreased [facility] 15:26 Drug: Ondansetron 4 mg Route: IVP; Site: left antecubital; [facility] 15:26 Drug: ketorolac 30 mg [ketorolac 30 mg/mL (1 mL) injection solution (1 mL)] Route: IVP; [facility] Site: left antecubital; 16:11 Follow up: BP 131 / 63; Pulse 91 bpm; Resp 18 bpm; Temp 98.8 Oral; Pulse Ox 95% RA; srm Pain 10 Adult 18:06 Drug: HYDROcodone-acetaminophen 1 tabs [hydrocodone 5 mg-acetaminophen 325 mg tablet (1 jmk tabs)] Route: PO; 18:07 Drug: metroNIDAZOLE 500 mg Route: PO; k 18:07 Drug: Ciprofloxacin 500 mg [ciprofloxacin 500 mg tablet (1 tabs)] Route: PO; [facility] Intake: 18:08 IV: 1000.00ml (NS); Total: 1000.00ml. srm Order Results: Lab Order: Basic Metabolic Profile; SPEC'M 04/05/16 15:21 Test: GLUCOSE, FASTING; Value: 99; Range: 70-105; Units: MG/DL; Status: F Test: BLOOD UREA NITROGEN; Value: 9; Range: 7-18; Units: MG/DL; Status: F Test: CREATININE FOR GFR; Value: 0.81; Range: 0.55-1.02; Units: MG/DL; Status: F Test: GLOMERULAR FILTRATION RATE; Value: > 60.0; Range: >58; Status: F Test: SODIUM LEVEL; Value: 141; Range: 136-145; Units: MEQ/L; Status: F Test: POTASSIUM SERUM; Value: 4.1; Range: 3.5-5.1; Units: MEQ/L; Status: F Test: CHLORIDE LEVEL; Value: 103; Range: 98-107; Units: MEQ/L; Status: F Test: CARBON DIOXIDE LEVEL; Value: 28; Range: 21-32; Units: MEQ/L; Status: F Test: ANION GAP; Value: 10; Range: 8-16; Units: MEQ/L; Status: F Test: CALCIUM LEVEL; Value: 8.6; Range: 8.5-10.1; Units: MG/DL; Status: F Test Note: ; Units are mL/min/1.73 m2 Chronic Kidney Disease Staging per NKF: Stage I & II GFR >=60 Normal to Mildly Decreased Stage III GFR 30-59 Moderately Decreased Stage IV GFR 15-29 Severely Decreased Stage V GFR <15 Very Little GFR Left ESRD GFR <15 on MIRROR POLISHER Lab Order: CBC with Diff; SPEC'M 04/05/16 15:21 Test: WHITE BLOOD COUNT; Value: 10.7; Range: 4.0-10.0; Abnormal: Above high normal; Units: K/mm3; Status: F Test: RED BLOOD COUNT; Value: 4.12; Range: 4.00-5.40; Units: M/mm3; Status: F Test: HEMOGLOBIN; Value: 11.5; Range: 12.0-16.0; Abnormal: Below low normal; Units: g/dl; Status: F Test: HEMATOCRIT; Value: 34.4; Range: 36.0-47.0; Abnormal: Below low normal; Units: %; Status: F Test: MEAN CORPUSCULAR VOLUME; Value: 83.6; Range: 80.0-96.0; Units: fl; Status: F Test: MEAN CORPUSCULAR HEMOGLOBIN; Value: 27.9; Range: 27.0-33.0; Units: pg; Status: F Test: MEAN CORPUSCULAR HGB CONC; Value: 33.4; Range: 32.0-36.5; Units: g/dl; Status: F Test: RED CELL DISTRIBUTION WIDTH; Value: 13.8; Range: 11.5-14.5; Units: %; Status: F Test: PLATELET COUNT, AUTOMATED; Value: 316; Range: 150-450; Units: k/mm3; Status: F Test: NEUTROPHILS %; Value: 78.2; Range: 36.0-66.0; Abnormal: Above high normal; Units: %; Status: F Test: LYMPH %; Value: 16.3; Range: 24.0-44.0; Abnormal: Below low normal; Units: %; Status: F Test: MONO %; Value: 2.6; Range: 0.0-5.0; Units: %; Status: F Test: EOS %; Value: 1.4; Range: 0.0-3.0; Units: %; Status: F Test: BASO %; Value: 0.9; Range: 0.0-1.0; Units: %; Status: F Test: LARGE UNSTAINED CELL %; Value: 0.6; Range: 0.0-4.0; Units: %; Status: F Test: NEUTROPHILS #; Value: 8.4; Range: 1.8-7.7; Abnormal: Above high normal; Units: K/mm3; Status: F Test: LYMPH #; Value: 1.8; Range: 1.5-4.5; Units: K/mm3; Status: F Test: MONO #; Value: 0.3; Range: 0.0-0.8; Units: K/mm3; Status: F Test: EOS #; Value: 0.2; Range: 0.0-0.50; Units: K/mm3; Status: F Test: BASO #; Value: 0.1; Range: 0.0-0.2; Units: K/mm3; Status: F Test: LARGE UNSTAINED CELL #; Value: 0.1; Range: 0.0-0.4; Units: K/mm3; Status: F Lab Order: Cardiac Injury Profile; [facility] 04/05/16 Test: CPK CREATINE PHOSPHOKINASE; Value: 137; Range: 26-192; Units: U/L; Status: F Test: CK-MB VALUE MASS; Value: 1.0; Range: 0.0-3.6; Units: NG/ML; Status: F Test: MB/CK RELATIVE INDEX; Value: 0.72; Range: < OR =4; Status: F Test Note: ; DIAGNOSIS CRITERIA MMB ng/ml Relative Index (RI) NON-AMI < or = 5 N/A BORJA ZONE > 5 < or = 4 AMI > 5 > 4 Lab Order: Lipase; [facility] 04/05/16 Test: LIPASE; Value: 70; Range: 73-393; Abnormal: Below low normal; Units: U/L; Status: F Lab Order: Liver Profile; [facility] 04/05/16 Test: AST/SGOT; Value: 34; Range: 15-37; Units: U/L; Status: F Test: ALT/SGPT; Value: 34; Range: 12-78; Units: U/L; Status: F Test: ALKALINE PHOSPHATASE; Value: 151; Range: 45-117; Abnormal: Above high normal; Units: U/L; Status: F Test: BILIRUBIN,TOTAL; Value: 0.4; Range: 0.2-1.0; Units: MG/DL; Status: F Test: BILIRUBIN,DIRECT; Value: 0.1; Range: 0.0-0.2; Units: MG/DL; Status: F Test: TOTAL PROTEIN; Value: 6.5; Range: 6.4-8.2; Units: GM/DL; Status: F Test: ALBUMIN; Value: 3.3; Range: 3.2-5.2; Units: GM/DL; Status: F Test: ALBUMIN/GLOBULIN RATIO; Value: 1.03; Range: 1.00-1.93; Status: F Lab Order: Troponin; [facility] 04/05/16 Test: TROPONIN I; Value: < 0.02; Range: < 0.10; Units: NG/ML; Status: F Test Note: ; Troponin I Reference Interval for Siemens e-SENS LOCI: 99th Percentile= 0.00-0.045 ng/ml Risk Stratification: <= 0.10 ng/ml Decreased Risk for Adverse Clinical Events. 0.10-1.50 ng/ml Increased Risk for Adverse Clinical Events. Evaluation of additional criterion and/or repeat testing in 2-6 hours is suggested to rule out myocardial damage. >= 1.50 ng/ml Indicative of Myocardial Injury. Lab Order: Urinalysis; SPEC'M 04/05/16 15:21 Test: APPEARANCE, URINE; Value: CLEAR; Range: CLEAR; Status: F Test: COLOR, URINE; Value: YELLOW; Range: YELLOW; Status: F Test: PH,URINE; Value: 6.0; Range: 5.0-9.0; Units: UNITS; Status: F Test: SPECIFIC GRAVITY URINE AUTO; Value: 1.005; Range: 1.002-1.035; Status: F Test: PROTEIN, URINE AUTO; Value: NEGATIVE; Range: NEGATIVE; Units: mg/dL; Status: F Test: GLUCOSE, URINE (UA) AUTO; Value: NEGATIVE; Range: NEGATIVE; Units: mg/dL; Status: F Test: KETONE, URINE AUTO; Value: NEGATIVE; Range: NEGATIVE; Units: mg/dL; Status: F Test: UROBILINOGEN, URINE AUTO; Value: 0.2; Range: 0.0-2.0; Units: mg/dL; Status: F Test: BILIRUBIN, URINE AUTO; Value: NEGATIVE; Range: NEGATIVE; Status: F Test: NITRITE, URINE AUTO; Value: NEGATIVE; Range: NEGATIVE; Status: F Test: LEUKOCYTE ESTERASE, URINE AUTO; Value: NEGATIVE; Range: NEGATIVE; Status: F Test: BLOOD, URINE BLOOD; Value: 1+; Range: NEGATIVE; Abnormal: Above high normal; Status: F Test: WBC, URINE AUTO; Value: 2; Range: 0-3; Units: /HPF; Status: F Test: RBC, URINE AUTO; Value: 2; Range: 0-3; Units: /HPF; Status: F Test: BACTERIA, URINE AUTO; Value: NEGATIVE; Range: NEGATIVE; Status: F Test: SQUAMOUS EPITHELIAL CELL UR AU; Value: 4; Range: 0-6; Units: /HPF; Status: F Test: HYALINE CAST, URINE AUTO; Value: 0; Range: 0-1; Units: /LPF; Status: F Radiology Order: EKG-ADULT Test: EKG-ADULT REASON FOR EXAMINATION: Chest Pain; Stationary ECG Study; [facility] - ED; ; Test Date: 2016-04-05; Pat Name: ROBYN ROCHA Department:; Room: -; Gender: F Transfer Table Operator Helper: nuvia; : 1970 Requested By: Malick Stoner; Order Number: [id number] Reading MD: Malick Hernandez; Measurements; Intervals [place]; Rate: 106 P: 55; MT: 152 QRS: 35; QRSD: 88 T: 39; QT: 337; QTc: 449; Interpretive Statements; SINUS TACHYCARDIA; POSSIBLE LEFT ATRIAL ENLARGEMENT; ; Electronically Signed On 04-06-2016 8:29:54 EST by Malick Hernandez; Radiology Order: US Gallbladder Test: US Gallbladder REASON FOR EXAMINATION: Biliary Colic; GALLBLADDER ULTRASOUND, 04/05/2016:; ; INDICATION: Biliary colic.; ; COMPARISON: CT abdomen and pelvis 02/02/2015.; ; FINDINGS: The gallbladder measures 7 x 3.2 x 3.5 cm and contains a few small; dependent stones with minimal posterior acoustic shadowing. The gallbladder; wall 2.8 mm; in thickness. There was a negative sonographic Alvarez sign. Common bile duct 3.1; mm transverse dimension, within normal limits.; ; The hepatic parenchyma is homogeneous without focal lesion. The pancreatic head; and pancreatic body are unremarkable. The tail is partially obscured by bowel; gas.; ; The right kidney measures 11.5 x 4.8 x 6.0 cm, is without hydronephrosis. There; is prominent column of Edward in the midpole of right kidney.; ; IMPRESSION:; 1. Cholelithiasis with negative sonographic Alvarez sign. The gallbladder wall; is 0.28 cm in thickness, upper normal range.; 2. Pancreatic tail partially obscured by bowel gas. Remainder of pancreas; unremarkable.; 3. Liver is without focal lesions or fatty infiltration.; 4. The right kidney without hydronephrosis. Prominent column of Edward.; ; ; ; ; ; ; MTDD Outcome: 17:56 Discharge ordered by Provider. mo1 18:08 Discharge Assessment: Patient awake, alert and oriented x 3. No cognitive and/or srm functional deficits noted. Patient verbalized understanding of disposition instructions. patient administered narcotics - no. The following High Risk Discharge criteria are identified: None. Discharged to home ambulatory, with significant other. Condition: good Condition: stable. Discharge instructions given to patient, Instructed on discharge instructions, follow up and referral plans. medication usage, Demonstrated understanding of instructions, medications, Pt was receptive of discharge instructions/ teaching. Prescriptions given X 4. Ultrasound Study completed. Property sent home with patient. 18:10 Patient left the ED. jrriya Signatures: Dispatcher [employer] EDMS Pancho Hawkins,RN RN Kymberly Venegas RN RN Cherri Palencia, Praful Reg Michelle LeyRN RN ck1 Shahbaz Martinez Gainslee gr2 Giovanni Bran PA PA mo1 Cayden Tarango, PA-C PA-C cc10 Mayito Soria, LINE INSTALLATION SUPERVISOR LINE INSTALLATION SUPERVISOR jrd No Mars, LINE INSTALLATION SUPERVISOR LINE INSTALLATION SUPERVISOR rs6 Chart Complete SUZIE
== END 2016-04-05 18:10 | disposition home or self-care (01) ==
LOC: M ED 14:30
DX: K80.12 Calculus of gallbladder with acute and chronic cholecystitis without obstruction (principal); R10.11 Right upper quadrant pain; I10 Essential (primary) hypertension; E78.5 Hyperlipidemia, unspecified; R51 Headache; E66.01 Morbid (severe) obesity due to excess calories; Z68.34 Body mass index [BMI] 34.0-34.9, adult; F41.9 Anxiety disorder, unspecified; F32.9 Major depressive disorder, single episode, unspecified; G25.0 Essential tremor; F43.10 Post-traumatic stress disorder, unspecified; F44.5 Conversion disorder with seizures or convulsions; Z79.899 Other long term (current) drug therapy; Z91.041 Radiographic dye allergy status
CPT/HCPCS: 36415; 76705; 80048; 80076; 81001; 82550; 82553; 83690; 84484; 85025; 93005; 96374; 96375; 99284; J1885; J2405

== ENCOUNTER → 2016-05-17 | Outpatient (REF) | payer MEDICARE ==
[~2016-05-17] MED LIST changes: +AMBI10TA PO; +AMIT25TA PO; +DULO1CAP PO; +DULO1CAP2 PO; +LABE10TAB PO; +LYRI75CA PO; +PERCOCET PO; +TIZA4CAP3 PO; +TOPA50TA7 PO
[2016-05-17 14:12] LABS: ALBUMIN 3.9 GM/DL (3.2-5.2); ALBUMIN/GLOBULIN RATIO 1.26 (1.00-1.93); ALKALINE PHOSPHATASE 155 U/L (45-117); ALT/SGPT 23 U/L (12-78); ANION GAP 8 MEQ/L (8-16); AST/SGOT 18 U/L (15-37); BILIRUBIN,TOTAL 0.5 MG/DL (0.2-1.0); BLOOD UREA NITROGEN 7 MG/DL (7-18); CALCIUM LEVEL 8.9 MG/DL (8.5-10.1); CARBON DIOXIDE LEVEL 29 MEQ/L (21-32); CHLORIDE LEVEL 104 MEQ/L (98-107); CHOLESTEROL LEVEL 185 MG/DL (<200); CREATININE FOR GFR 0.77 MG/DL (0.55-1.02); GLOMERULAR FILTRATION RATE > 60.0 (>58); GLUCOSE, FASTING 106 MG/DL (70-105); POTASSIUM SERUM 3.8 MEQ/L (3.5-5.1); SODIUM LEVEL 141 MEQ/L (136-145); TRIGLYCERIDES LEVEL 178 MG/DL (<150)
[2016-05-17 14:50] LABS: MEAN CORPUSCULAR HGB CONC 32.9 g/dl (32.0-36.5); MEAN CORPUSCULAR VOLUME 85.3 fl (80.0-96.0); RED CELL DISTRIBUTION WIDTH 13.5 % (11.5-14.5)
== END ==
LOC: M SFHCPLAZ 10:25
PROVIDERS: ATTEND Nurse Practitioner Adult Health
DX: Z00.00 Encounter for general adult medical examination without abnormal findings (principal); Z83.3 Family history of diabetes mellitus; E55.9 Vitamin D deficiency, unspecified; Z79.891 Long term (current) use of opiate analgesic; Z79.899 Other long term (current) drug therapy
CPT/HCPCS: 36415; 80053; 80061; 82306; 83036; 84443; 85027; G0463

== ENCOUNTER → 2016-06-02 | Day surgery (SDC) | payer MEDICARE ==
[~2016-06-02] VITALS: Ht 165.1 cm; Wt 111.6 kg
[~2016-06-02] MED LIST changes: +AMPICILLIN SOD/SULBACTAM SOD 3 GM in D5W MINI-BAG PLUS 100 ML IV ONE; +BUPIVACAINE HCL 0.25% 30 ML VIAL As Ordered ONE; +CONRAY-60 60% 50ML VIAL (Q9961) As Ordered ONE; +GLYCOPYRROLATE INJ 0.2 MG/ML 2 ML VIAL As Ordered ONE; +HYDROmorphone HCL 2 MG/ML 1ML VIAL (J1170) As Ordered ONE; +KETOROLAC 30 MG/ML VIAL (J1885) IV PRN; +KETOROLAC 60 MG/2 ML VIAL (J1885) As Ordered ONE; +LABETALOL 100 MG TAB PO ONE; +LABETALOL HCL 100 MG/20 ML VIAL As Ordered ONE; +LIDOCAINE 1% SDV INJ 30 ML VIAL As Ordered ONE; +LIDOCAINE 2% INJ 100 MG/5 ML SDV (FOR ANES.) As Ordered ONE; +LR 1,000 ML IV SCH; +MIDAZOLAM INJ 2 MG/2 ML VIAL (J2250) As Ordered ONE; +NEOSTIGMINE 1MG/ML 5 ML SYRINGE (J2710) As Ordered ONE; +NORCO, ANEXSIA 5/325MG TABLET (HYDROcodone/ACETAMINOPHEN) PO PRN; +ONDANSETRON 4MG/2ML VIAL (J2405) As Ordered ONE; +ONDANSETRON 4MG/2ML VIAL (J2405) IV PRN; +PROPOFOL 200 MG/20 ML VIAL As Ordered ONE; +ROCURONIUM BROMIDE 50 MG/5 ML VIAL As Ordered ONE; +dexameTHASONE 4 MG/ML 1ML VIAL (J1100) As Ordered ONE; +fentaNYL 250 MCG/5 ML INJECTION (J3010) As Ordered ONE
[2016-06-02] MEDS: LR 1,000 ML IV SCH ×2 (10:31→16:30)
[2016-06-02 14:36] VITALS: BP 170/84
[2016-06-02 19:30] VITALS: BP 167/88
--- NOTE | 2016-06-04 12:47 | RO ---
DATE OF PROCEDURE: 06/02/2016 PREOPERATIVE DIAGNOSIS: Symptomatic cholelithiasis. POSTOPERATIVE DIAGNOSIS: Symptomatic cholelithiasis. PROCEDURE: Laparoscopic cholecystectomy. SURGEON: Bruno Edward MD LEAD CARE MANAGER: ANESTHESIA: General anesthesia. ESTIMATED BLOOD LOSS: Less than 5 mL. COMPLICATIONS: None. REMARKS: Patient tolerated the procedure well. DESCRIPTION OF PROCEDURE: Ms. Rocha is a 45-year-old female who was seen in the emergency department for right-sided abdominal pain, diagnosed to have had most likely acute cholecystitis at that time. On her discharge home, she followed up with me. She had stones in the gallbladder. Her liver function tests (LFTs) were normal. She was advised cholecystectomy and agreed after a full discussion of the risks and benefits. She received preoperatively for prophylaxis. She was brought to the operating room. General endotracheal anesthesia started without any complication. Her abdomen prepped and draped in usual sterile fashion. After surgical time-out, we began our surgery. Entry of the abdomen had been done through an incision about 2 cm above the umbilicus, it was deepened to anterior fascia. Veress needle inserted in a controlled fashion. CO2 insufflation started at a pressure of 15 mmHg. Using the same incision, a 5 mm Visiport was placed under direct vision of the laparoscope. The insertion site was inspected for injury, none was found. She was placed in a traverse Trendelenburg position right side tilted up to further expose the gallbladder. Three other working ports were placed, an 11 mm epigastric port and two 5 mm right sided ports along the coastal line. Diagnostic laparoscopy, initially the gallbladder was created underneath the omentum. After this was retracted away, a distended, minimally thickened wall gallbladder was noted. No acute inflammation was noted. The fundus of the gallbladder was grasped. It was elevated superiorly exposing the infundibulum and neck of the gallbladder. Peritoneum overlying the area was opened up with both blunt and sharp dissection with Bovie cautery and Maryland instrument. Anteriorly and posteriorly, the hepatocystic triangle was dissected with the [place] instrument. The cystic artery was located and circumferentially dissected. Medial to this the cystic duct was likewise located, traced to the gallbladder and circumferentially dissected. We continued dissecting the posterior wall of the neck of the gallbladder until the critical view of safety was met whereby only the duct and artery, which were previously identified, are the only two structures coursing through the neck of the gallbladder. At this point, the cystic artery was clipped four times and divided. The cystic duct clipped four times, likewise divided. The rest of the gallbladder was dissected free of the gallbladder bed and removed intact. No bleeding noted at the gallbladder bed. This was placed in an EndoCatch bag retrieved through the epigastric port site. On insufflation, we inspected back to our surgical site. No bleeding noted. The clips were noted to be in place. No bile leakage noted. The abdomen was then deflated. All ports removed. The epigastric fascial defect repaired with #0 Vicryl in mattress fashion. All skin incisions closed with #4-0 Monocryl in subcuticular fashion. Dermabond used for wound coverage. The patient was promptly awakened, extubated, brought to recovery room stable.
== END | disposition home or self-care (01) ==
LOC: M SDC 09:38
PROVIDERS: ATTEND Surgery
DX: K80.18 Calculus of gallbladder with other cholecystitis without obstruction (principal); I10 Essential (primary) hypertension; E78.5 Hyperlipidemia, unspecified; M79.7 Fibromyalgia; R56.9 Unspecified convulsions; Z79.899 Other long term (current) drug therapy; F41.9 Anxiety disorder, unspecified; F32.9 Major depressive disorder, single episode, unspecified
CPT/HCPCS: 47562; 88304; J1100; J1170; J1885; J2250; J2405; J2710; J3010

== ENCOUNTER → 2016-11-28 | Outpatient (REF) | payer MEDICARE ==
[~2016-11-28] MED LIST changes: -AMPICILLIN SOD/SULBACTAM SOD 3 GM in D5W MINI-BAG PLUS 100 ML IV ONE; -BUPIVACAINE HCL 0.25% 30 ML VIAL As Ordered ONE; -CONRAY-60 60% 50ML VIAL (Q9961) As Ordered ONE; -GLYCOPYRROLATE INJ 0.2 MG/ML 2 ML VIAL As Ordered ONE; -HYDROmorphone HCL 2 MG/ML 1ML VIAL (J1170) As Ordered ONE; -KETOROLAC 30 MG/ML VIAL (J1885) IV PRN; -KETOROLAC 60 MG/2 ML VIAL (J1885) As Ordered ONE; -LABETALOL 100 MG TAB PO ONE; -LABETALOL HCL 100 MG/20 ML VIAL As Ordered ONE; -LIDOCAINE 1% SDV INJ 30 ML VIAL As Ordered ONE; -LIDOCAINE 2% INJ 100 MG/5 ML SDV (FOR ANES.) As Ordered ONE; -LR 1,000 ML IV SCH; -MIDAZOLAM INJ 2 MG/2 ML VIAL (J2250) As Ordered ONE; -NEOSTIGMINE 1MG/ML 5 ML SYRINGE (J2710) As Ordered ONE; -NORCO, ANEXSIA 5/325MG TABLET (HYDROcodone/ACETAMINOPHEN) PO PRN; -ONDANSETRON 4MG/2ML VIAL (J2405) As Ordered ONE; -ONDANSETRON 4MG/2ML VIAL (J2405) IV PRN; -PROPOFOL 200 MG/20 ML VIAL As Ordered ONE; -ROCURONIUM BROMIDE 50 MG/5 ML VIAL As Ordered ONE; -TOPA50TA7 PO; +TOPA50TA8 PO; -dexameTHASONE 4 MG/ML 1ML VIAL (J1100) As Ordered ONE; -fentaNYL 250 MCG/5 ML INJECTION (J3010) As Ordered ONE
[2016-11-28 13:08] LABS: BASO % 0.4 % (0.0-1.0); EOS # 0.1 K/mm3 (0.0-0.50); EOS % 1.8 % (0.0-3.0); LARGE UNSTAINED CELL # 0.1 K/mm3 (0.0-0.4); LARGE UNSTAINED CELL % 1.3 % (0.0-4.0); LYMPH # 1.9 K/mm3 (1.5-4.5); LYMPH % 26.3 % (24.0-44.0); MEAN CORPUSCULAR HEMOGLOBIN 28.8 pg (27.0-33.0); MEAN CORPUSCULAR HGB CONC 33.5 g/dl (32.0-36.5); MEAN CORPUSCULAR VOLUME 86.2 fl (80.0-96.0); MONO # 0.2 K/mm3 (0.0-0.8); MONO % 3.1 % (0.0-5.0); NEUTROPHILS # 4.8 K/mm3 (1.8-7.7); NEUTROPHILS % 67.1 % (36.0-66.0); PLATELET COUNT, AUTOMATED 325 k/mm3 (150-450); WHITE BLOOD COUNT 7.2 K/mm3 (4.0-10.0)
[2016-11-28 13:43] LABS: ANION GAP 10 MEQ/L (8-16); BLOOD UREA NITROGEN 10 MG/DL (7-18); CALCIUM LEVEL 9.7 MG/DL (8.5-10.1); CARBON DIOXIDE LEVEL 23 MEQ/L (21-32); CHLORIDE LEVEL 110 MEQ/L (98-107); CREATININE FOR GFR 0.77 MG/DL (0.55-1.02); GLOMERULAR FILTRATION RATE > 60.0 (>58); GLUCOSE, FASTING 102 MG/DL (70-105); POTASSIUM SERUM 3.6 MEQ/L (3.5-5.1); SODIUM LEVEL 143 MEQ/L (136-145)
== END ==
LOC: M SFHCPLAZ 11:35
PROVIDERS: ATTEND Nurse Practitioner Family
DX: R19.7 Diarrhea, unspecified (principal)
CPT/HCPCS: 80048; 85025; G0463

== ENCOUNTER → 2016-11-29 | Outpatient (REF) | payer MEDICARE | LOC: M SFHCPLAZ 14:43 | PROVIDERS: ATTEND Nurse Practitioner Family | DX: R19.7 Diarrhea, unspecified (principal) ==

== ENCOUNTER → 2017-05-16 | Outpatient (CLI) | payer MEDICARE, MEDICAID | LOC: M RAD 16:05 | DX: K57.32 Diverticulitis of large intestine without perforation or abscess without bleeding (principal); R35.0 Frequency of micturition; Z90.711 Acquired absence of uterus with remaining cervical stump; Z90.49 Acquired absence of other specified parts of digestive tract | CPT/HCPCS: 74176 ==

== ENCOUNTER → 2017-05-16 | Outpatient (REF) | payer MEDICARE ==
[2017-05-16 20:39] LABS: BASO % 0.3 % (0.0-1.0); EOS # 0.3 10^3/uL (0.0-0.50); EOS % 2.7 % (0.0-3.0); HEMATOCRIT 39.7 % (36.0-47.0); HEMOGLOBIN 12.8 g/dl (12.0-16.0); IMMATURE GRANULOCYTE % 0.5 % (0-3.0); LYMPH # 2.7 10^3/uL (1.5-4.5); LYMPH % 27.9 % (24.0-44.0); MEAN CORPUSCULAR HEMOGLOBIN 27.5 pg (27.0-33.0); MEAN CORPUSCULAR HGB CONC 32.2 g/dl (32.0-36.5); MEAN CORPUSCULAR VOLUME 85.2 fl (80.0-96.0); MONO # 0.5 10^3/uL (0.0-0.8); MONO % 5.4 % (0.0-5.0); NEUTROPHILS % 63.2 % (36.0-66.0); PLATELET COUNT, AUTOMATED 361 10^3/uL (150-450); RED BLOOD COUNT 4.66 10^6/uL (4.00-5.40); RED CELL DISTRIBUTION WIDTH 13.4 % (11.5-14.5); WHITE BLOOD COUNT 9.5 10^3/uL (4.0-10.0)
== END ==
LOC: M SFHCPLAZ 15:06
DX: R35.0 Frequency of micturition (principal); M54.5 Low back pain
CPT/HCPCS: 85025

== ENCOUNTER → 2020-09-09 | Outpatient (CLI) | payer MEDICARE, SELFPAY ==
[~2020-09-09] MED LIST changes: -AMIT25TA PO; +AMIT25TA17 PO; +ATOR1TAB19 PO; +CORE6.25 PO; +CYMB1CAP4 OR; -DULO1CAP PO; -DULO1CAP2 PO; +DULO1CAP4 PO; +DULO1CAP5 PO; -DULO20CA OR; +KETO10TAB PO; +LABE100T4 PO; -LABE10TAB PO; +LISI20TA33 PO; +METH-1164 PO; +NORV5TAB PO; +TIZA4CAP PO; -TIZA4CAP3 PO
--- NOTE | 2020-09-09 14:56 | REP ---
INDICATION: THYROID NODULE. COMPARISON: 09/22/2013 TECHNIQUE: Bilateral thyroid ultrasound FINDINGS: The right lobe of the thyroid gland measures 6.2 x 2.8 x 2.1 cm and the left lobe measures 4.6 x 2.3 x 6.1 cm. The isthmus measures 3 mm. Previously, the right lobe measured 5.9 x 2.2 x 2.1 cm and the left lobe measured 5 x 2 x 1.6 cm in the isthmus measured form Once again, there are in multiple solid, cystic, and complex nodules. There are 4 on the right which are unchanged and 4 on the left 2 of which developed. Each of the 2 that have developed measure 8 mm. The largest on the left measures 1.5 x 1.4 x 1.6 cm and is now complex in appearance rather than predominantly solid. IMPRESSION: Multiple thyroid nodules as described above. Correlate clinically with close follow-up. <Electronically signed by Asaf Vargas > 09/09/20 [id number]
[2020-09-09 15:46] LABS: FREE T4 0.91 NG/DL (0.76-1.46); THYROID STIMULATING HORMONE 0.638 uIU/ML (0.358-3.740)
[2020-09-09 15:49] LABS: TOTAL T3 141.9 NG/DL (60.0-181.0)
== END ==
LOC: M RAD 14:16
PROVIDERS: ATTEND Physician Assistant
DX: E04.2 Nontoxic multinodular goiter (principal)

== ENCOUNTER → 2020-11-25 | Outpatient (REF) | payer MEDICARE | LOC: M LAB REF 19:22 | PROVIDERS: ATTEND Internal Medicine Endocrinology, Diabetes & Metabolism | DX: E04.2 Nontoxic multinodular goiter (principal) ==